=== PATIENT | female | born 1970 | race Two or more races ===

== ENCOUNTER 2019-06-11 08:06 | Emergency (ER) | payer MEDICAID ==
[~2019-06-11] VITALS: Ht 160 cm; Wt 66.2 kg
[~2019-06-11 08:06] MED LIST: HYDR-3240 PO
--- NOTE | 2019-06-11 08:12 | NUR ---
EKG IN TRIAGE
--- NOTE | 2019-06-11 08:43 | NUR ---
PT AMBULATORY TO ROOM 4 W/ C/O EPIGASTRIC ABD PAIN STARTED 3 DAYS AGO. PT STATES SHE DOES NOT HAVE HX GERD. PT STATES SHE HAS HAD N/V. DENIES DIARRHEA. DENIES CARDIAC/PULM HX. STATES SHE CAME BACK FROM [place] 1 WEEK AGO. FLIGHT IS 4 HOURS. NO SWELLING, HEAT, PAIN, REDNESS TO BLE. MONITORS APPLIED. PT RESTING ON GURNEY. NADN. WARM BLANKET PROVIDED.
[2019-06-11] MEDS ORDERED: ONDANSETRON 2MG/ML, 2ML ONE (08:48)
[2019-06-11] MEDS ORDERED: FAMOTIDINE 20 MG/2 ML ONE (08:48)
[2019-06-11] MEDS ORDERED: MAALOX/HYOSCYAMINE/LIDOCAINE 45 ML BTL ONE (08:48)
[2019-06-11 08:56] LABS: BASOPHILS # (AUTO) 0.05 x10^3/uL (0-0.1); BASOPHILS % (AUTO) 1 % (0-1); EOSINOPHILS # (AUTO) 0.04 x10^3/uL (0-0.4); EOSINOPHILS % (AUTO) 1 % (1-7); LYMPHOCYTES # (AUTO) 1.18 x10^3/uL (1-3.4); LYMPHOCYTES % (AUTO) 15 % (22-44); MD NO; MEAN CORPUSCULAR HEMOGLOBIN 29.7 pg (27.0-34.8); MEAN CORPUSCULAR HGB CONC 33.6 g/dL (32.4-35.8); MEAN CORPUSCULAR VOLUME 88.3 fL (80-100); MEAN PLATELET VOLUME 8.2 fL (7.4-10.4); MONOCYTES # (AUTO) 0.48 x10^3/uL (0.2-0.8); MONOCYTES % (AUTO) 6 % (2-9); NEUTROPHILS # (AUTO) 6.07 x10^3/uL (1.8-6.8); NEUTROPHILS % (AUTO) 78 % (42-75); PLATELET COUNT 370 x10^3/uL (130-400); RED BLOOD COUNT 4.35 x10^6/uL (3.82-5.3); RED CELL DISTRIBUTION WIDTH 13.2 % (9.6-15.2)
[2019-06-11] MEDS ORDERED: FAMOTIDINE 20 MG/2 ML IV ONE (09:00)
[2019-06-11] MEDS ORDERED: ONDANSETRON 2MG/ML, 2ML IVPush ONE (09:00)
[2019-06-11] MEDS ORDERED: MAALOX/HYOSCYAMINE/LIDOCAINE 45 ML BTL PO ONE (09:00)
[2019-06-11 09:04] LABS: ALANINE AMINOTRANSFERASE 63 U/L (12-78); ALBUMIN 4.1 g/dL (3.4-5.0); ANION GAP 6 mmol/L (5-15); CALCIUM 9.2 mg/dL (8.5-10.1); CHLORIDE 107 mmol/L (98-107)
[2019-06-11 09:09] LABS: ALKALINE PHOSPHATASE 116 U/L (45-117); BILIRUBIN,TOTAL 0.5 mg/dL (0.2-1.0); TOTAL PROTEIN 8.4 g/dL (6.4-8.2); TROPONIN I < 0.015 ng/mL (0.000-0.045)
[2019-06-11 09:28] VITALS: BP 112/49
--- NOTE | 2019-06-11 09:28 | NUR ---
PT STATES IMPROVEMENT IN EPIGASTRIC PAIN FROM 8/10 TO 5/10. PT CHART REVIEWED AND PLACED FOR RECHECK.
--- NOTE | 2019-06-11 09:44 | NUR ---
ERP DR. MCCULLOUGH AT BEDSIDE.
[2019-06-11] MEDS ORDERED: SODIUM CHLORIDE FLUSH 10ML SYR IVF ONE (10:00)
== END 2019-06-11 10:08 | disposition home or self-care (01) ==
LOC: ED 09:14
DX: K29.00 Acute gastritis without bleeding (principal); G43.909 Migraine, unspecified, not intractable, without status migrainosus
CPT/HCPCS: 36415; 71045; 80053; 83690; 84484; 84703; 85025; 93005; 96374; 96375; 99284; J2405; J3490

== ENCOUNTER → 2020-04-17 | Outpatient (CLI) | payer MEDICAID | END | disposition home or self-care (01) | LOC: CFH 08:30 | PROVIDERS: ATTEND Nurse Practitioner | DX: Z12.31 Encounter for screening mammogram for malignant neoplasm of breast (principal) | CPT/HCPCS: 77063; 77067 ==